=== PATIENT | female | born 1960 | race Caucasian/White ===

== ENCOUNTER 2016-09-05 12:30 | Emergency (ER) | payer OTHER ==
[~2016-09-05] VITALS: Ht 165.1 cm; Wt 49.0 kg
[~2016-09-05 12:30] MED LIST: ATEN1TAB73 PO; CENTTAB9 PO; IBUP800T23 PO; PHEN100 PO; PROT40TA PO; QUET100 PO; QUET25 PO; THIA100T PO; WARF5 PO
[2016-09-05] MEDS ORDERED: SODIUM CHLOR 0.9% 1000 ML INJ 1,000 ML IV ONE (12:48)
[2016-09-05 12:50] VITALS: BP 133/83; PULSE 126; RESP 16; TEMP 99.4; O2SAT 96
[2016-09-05] MEDS ORDERED: SODIUM CHLORIDE 0.9% FLUSH 10 ML FLUSH IVF PRN (13:00)
[2016-09-05] MEDS ORDERED: PHENYTOIN INJ 1,000 MG in SODIUM CHLORIDE 0.9% INJ 100 ML IV ONE (13:00)
[2016-09-05] MEDS ORDERED: LORazepam 2 MG/ML VIAL IVS ONE (13:00)
[2016-09-05] MEDS ORDERED: THIAMINE HCL 200 MG/2 ML VIAL IM ONE (13:00)
--- NOTE | 2016-09-05 13:01 | PD ---
HPI Chief Complaint: AMS, SEIZURE VS SYNCOPE Time Seen by Provider: 12:47 Travel History International Travel<30 days: No Contact w/Intl Traveler<30days: No Traveled to known affect area: No History of Present Illness HPI while waiting for bus to arrive at bus stop, "felt shaky" and sat down, that's all she recalls, per withnesses she had generalized shaking and per ems, post ictal on arrival...per pt history she is out of meds and has not taken them PFSH Past Medical History Anxiety: No Depression: Yes (UNEMPLOYED) Cancer: No Cardiovascular Problems: No Diabetes: No Diminished Hearing: No Endocrine: No Genitourinary: No Immune Disorder: No Implanted Vascular Access Dvce: No Musculoskeletal: No Neurologic: No Psychiatric: No Reproductive: No Respiratory: Yes Seizures: Yes ?: Not Menopausal: Yes : 1 Para: 0 Miscarriage: 1 Past Surgical History Eye Surgery: Yes ("CROSS EYED" CORRECTION) Other Surgery: Yes Social History Alcohol Use: Yes (1-2 DRINKS A DAY) Tobacco Use: Yes ( 1/2-3/4 PPD) Substance Use: No Allergies-Medications (Allergen,Severity, Reaction): Coded Allergies: Codeine (Verified Adverse Reaction, Intermediate, Nausea/Vomiting, 11/29/15) Reported Meds & Prescriptions Reported Meds & Active Scripts Active Coumadin (Warfarin Sod) 5 Mg Tab 5 Mg PO DAILY@16 30 Days Vitamin B1 (Thiamine HCl) 100 Mg Tab 100 Mg PO DAILY 30 Days Quetiapine Fumarate 100 Mg Tab 100 Mg PO HS 30 Days Quetiapine Fumarate 25 Mg Tab 25 Mg PO DAILY@1700 30 Days Dilantin 100 Mg Kapseals (Phenytoin Sodium) 100 Mg Cap 100 Mg PO Q8 30 Days Protonix (Pantoprazole Sodium) 40 Mg Tabdr 40 Mg PO DAILY Tenormin (Atenolol) 25 Mg Tab 25 Mg PO DAILY 30 Days Ibuprofen 800 Mg Tab 800 Mg PO TID PRN Reported Centrum (Multivitamins) Tab 1 Tab PO DAILY Review of Systems Except as stated in HPI: all other systems reviewed are Neg Neurologic: Positive: Seizures Physical Exam Narrative GENERAL: SKIN: Warm and dry., unkempt appearing HEAD: Atraumatic. Normocephalic. EYES: Pupils equal and round. No scleral icterus. No injection or drainage. ENT: No nasal bleeding or discharge. Mucous membranes pink and moist. NECK: Trachea midline. No JVD. CARDIOVASCULAR: Regular rate and rhythm. RESPIRATORY: No accessory muscle use. Clear to auscultation. Breath sounds equal bilaterally. GASTROINTESTINAL: Abdomen soft, non-tender, nondistended. MUSCULOSKELETAL: Extremities without clubbing, cyanosis, or edema. No obvious deformities. NEUROLOGICAL: Awake and alert. No obvious cranial nerve deficits. Motor grossly within normal limits. Five out of 5 muscle strength in the arms and legs. Normal speech. PSYCHIATRIC: Appropriate mood and affect; insight and judgment normal. Data Data Last Documented VS Vital Signs Date Time Temp Pulse Resp B/P Pulse Ox O2 Delivery O2 Flow Rate FiO2 09/05/16 13:02 95 Room Air 09/05/16 13:01 121 09/05/16 12:50 99.4 16 133/83 Orders Complete Blood Count With Diff (09/05/16 12:48) Basic Metabolic Panel (Bmp) (09/05/16 12:48) Alcohol (Ethanol) (09/05/16 12:48) Phenytoin (Dilantin) (09/05/16 12:48) Drug Screen, Random Urine (09/05/16 12:48) Electrocardiogram (09/05/16 ) Ct Brain W/O Iv Contrast(Rout) (09/05/16 ) Blood Glucose (09/05/16 12:48) Ecg Monitoring (09/05/16 12:48) Iv Access Insert/Monitor (09/05/16 12:48) Oximetry (09/05/16 12:48) Sodium Chlor 0.9% 1000 Ml Inj (Ns 1000 M (09/05/16 12:48) Sodium Chloride 0.9% Flush (Ns Flush) (09/05/16 13:00) Lorazepam Inj (Ativan Inj) (09/05/16 13:00) Phenytoin Inj (Dilantin Inj) (09/05/16 13:00) Urinalysis - C+S If Indicated (09/05/16 12:48) Thiamine Inj (Thiamine Inj) (09/05/16 13:00) Labs Laboratory Tests Test 09/05/16 13:55 White Blood Count 11.6 TH/MM3 Red Blood Count 4.18 MIL/MM3 Hemoglobin 14.7 GM/DL Hematocrit 42.2 % Mean Corpuscular Volume 100.9 FL Mean Corpuscular Hemoglobin 35.2 PG Mean Corpuscular Hemoglobin 34.9 % Concent Red Cell Distribution Width 14.6 % Platelet Count 239 TH/MM3 Mean Platelet Volume 8.6 FL Neutrophils (%) (Auto) 84.9 % Lymphocytes (%) (Auto) 6.8 % Monocytes (%) (Auto) 6.9 % Eosinophils (%) (Auto) 0.7 % Basophils (%) (Auto) 0.7 % Neutrophils # (Auto) 9.8 TH/MM3 Lymphocytes # (Auto) 0.8 TH/MM3 Monocytes # (Auto) 0.8 TH/MM3 Eosinophils # (Auto) 0.1 TH/MM3 Basophils # (Auto) 0.1 TH/MM3 CBC Comment DIFF FINAL Differential Comment Sodium Level 134 MEQ/L Potassium Level 4.1 MEQ/L Chloride Level 98 MEQ/L Carbon Dioxide Level 25.5 MEQ/L Anion Gap 11 MEQ/L Blood Urea Nitrogen 10 MG/DL Creatinine 1.02 MG/DL Estimat Glomerular Filtration 56 ML/MIN Rate Random Glucose 91 MG/DL Calcium Level 10.0 MG/DL Phenytoin (Dilantin) Level LESS THAN 0.4 MCG/ML Ethyl Alcohol Level LESS THAN 3 MG/DL MDM Medical Decision Making Medical Screen Exam Complete: Yes Emergency Medical Condition: Yes Medical Record Reviewed: Yes Interpretation(s) st 127, IRBB, no stemi pattern, Differential Diagnosis noncompliant seizure, eval for secondary head trauma, electrolyte abnl, dehydration, Narrative Course upon exam, no secondary trauma noted on PE, will start IV, hydrate, provide thiamine, ativan, and will load dilantin....if labs wnl, will d/c home....ALL LABS WERE WNL, GIVEN THIAMINE, DILANTIN LOAD AND IVF BOLUS WHICH IMPROVED HER TACHYCARDIA FROM 126 DOWN TO 90'S , PT STABLE FOR DISCHARGE AT 1508 Diagnosis Primary Impression: Seizure Med/Other Pt SpecificInfo: Prescription(s) given Scripts Phenytoin Extended (Dilantin)100 Mg [id number] Mg PO TID #90 CAP Ref 0 Prov:Jayme Suh MD 09/05/16 Disposition: 01 DISCHARGE HOME Condition: Stable Jayme Suh MD September 05, 2016 13:01
[2016-09-05 13:02] VITALS: O2SAT 95
--- NOTE | 2016-09-05 13:51 | RADRPT ---
EXAM DATE/TIME: 09/05/2016 13:12 [facility] COMPARISON: CT BRAIN W/O CONTRAST, May 21, 2014, 11:12. INDICATIONS : [place] shakey and confusion. RADIATION DOSE: 34.40 CTDIvol (mGy) MEDICAL HISTORY : Seizures. SURGICAL HISTORY : None. ENCOUNTER: Initial ACUITY: 1 day PAIN SCALE: 0/10 LOCATION: cranial TECHNIQUE: Multiple contiguous axial images were obtained of the head. Using automated exposure control and adj ustment of the mA and/or kV according to patient size, radiation dose was kept as low as reasonably a chievable to obtain optimal diagnostic quality images. FINDINGS: CEREBRUM: The ventricles are normal for age. No evidence of midline shift, mass lesion, hemorrhage or acute in farction. No extra-axial fluid collections are seen. POSTERIOR FOSSA: The cerebellum and brainstem are intact. The 4th ventricle is midline. The cerebellopontine angle i s unremarkable. EXTRACRANIAL: The visualized portion of the orbits is intact. SKULL: The calvaria is intact. No evidence of skull fracture. CONCLUSION: 1. No evidence of acute intracranial pathology. No masses are identified. Jairo Tee MD on September 05, 2016 at 13:48 Board Certified Radiologist. This report was verified electronically.
[2016-09-05 14:10] LABS: AUTOMATED NEUTROPHIL # 9.8 TH/MM3 (1.8-7.7); BASOPHIL # 0.1 TH/MM3 (0-0.2); BASOPHIL % 0.7 % (0.0-2.0); EOSINOPHIL # 0.1 TH/MM3 (0-0.4); EOSINOPHIL % 0.7 % (0.0-4.0); HEMATOCRIT 42.2 % (35.0-46.0); HEMO FLAGS DIFF FINAL; LYMPH % 6.8 % (9.0-44.0); LYMPHOCYTE # 0.8 TH/MM3 (1.0-4.8); MEAN CELL VOLUME 100.9 FL (80.0-100.0); MEAN CORPUSCULAR HEMOGLOBIN 35.2 PG (27.0-34.0); MEAN CORPUSCULAR HGB CONC 34.9 % (32.0-36.0); MONO % 6.9 % (0.0-8.0); NEUT % 84.9 % (16.0-70.0); PLATELET COUNT 239 TH/MM3 (150-450); RED BLOOD COUNT 4.18 MIL/MM3 (4.00-5.30); RED CELL DISTRIBUTION WIDTH 14.6 % (11.6-17.2); WHITE BLOOD COUNT 11.6 TH/MM3 (4.0-11.0)
[2016-09-05 14:37] LABS: ANION GAP 11 MEQ/L (5-15); BICARBONATE 25.5 MEQ/L (21.0-32.0); BLOOD UREA NITROGEN 10 MG/DL (7-18); CHLORIDE 98 MEQ/L (98-107); GLOMERULAR FILTRATION RATE 56 ML/MIN (>89); POTASSIUM 4.1 MEQ/L (3.5-5.1); SODIUM (NA) 134 MEQ/L (136-145)
[2016-09-05] MEDS ORDERED: DILA100C PO (15:06)
[2016-09-05 16:00] VITALS: BP 130/71; TEMP 98.2
--- NOTE | 2016-09-06 13:40 | EKG ---
Date Performed: 09/05/2016 Time Performed: 12:51:20 PTAGE: 56 years EKG: SINUS TACHYCARDIA PATTERN CONSISTENT WITH PULMONARY DISEASE INCOMPLETE RIGHT BUNDLE BRANCH BLOCK LEFT ANTERIOR FASCICULAR BLOCK ABNORMAL ECG Compared to prior tracing no significant change PREVIOUS TRACING : 05/21/2014 08.50 DOCTOR: Gonzales Guzmán Interpretating Date/Time 09/06/2016 13:38:07
== END 2016-09-05 16:00 | disposition home or self-care (01) ==
LOC: NEPE 12:30
DX: R56.9 Unspecified convulsions (principal)
CPT/HCPCS: 70450; 80048; 80185; 80307; 85025; 93005; 96361; 96365; 96372; 96375; 99284; J1165; J2060; J3411; J7030